=== PATIENT | male | born 1995 | race Caucasian/White ===

== ENCOUNTER 2024-12-19 20:16 | Emergency (ER) | payer SELFPAY ==
[~2024-12-19] VITALS: Ht 175.3 cm; Wt 70.0 kg
[2024-12-19 20:21] VITALS: BP 145/82; TEMP 97.2; O2SAT 100
== END 2024-12-19 22:05 | disposition left against medical advice (07) ==
LOC: M ED 20:16
DX: Z53.21 Procedure and treatment not carried out due to patient leaving prior to being seen by health care provider (principal)